=== PATIENT | male | born 1970 | race Hispanic/Latino ===

== ENCOUNTER 2016-12-28 03:50 | Emergency (ER) | payer MEDICAID, OTHER ==
[2016-12-28 04:13] VITALS: BP 140/80; PULSE 101; TEMP 98; O2SAT 100
[2016-12-28 05:04] VITALS: RESP 16
--- NOTE | 2016-12-28 05:19 | ED PDOC ---
HPI: SOB/CHF/COPD Time Seen by Provider: 12/28/16 04:00 Chief Complaint (Nursing): Shortness Of Breath Chief Complaint (Provider): shortness of breath History Per: Patient History/Exam Limitations: no limitations Current Symptoms Are (Timing): Still Present Additional Complaint(s): The patient is a 46yo male, no pertinent past medical history, presents to the ED for evaluation of shortness of breath present for the past couple days. Patient reports he was in [place] when his symptoms presented, reports feeling bloated as well. Patient states he visited an ED facility in [place] and was discharged with a diagnosis of acid reflux. Patient reports he presents today due to persistent shortness of breath - he reports some relief with taking his prescription acid reflux medications. He denies any fever, chills, chest pain. Offers no additional medical complaints. Past Medical History Reviewed: Historical Data, Nursing Documentation, Vital Signs Vital Signs: Last Vital Signs Temp 98.0 F 12/28/16 04:10 Pulse 101 H 12/28/16 04:10 Resp 16 12/28/16 05:03 BP 140/80 12/28/16 04:10 Pulse Ox 100 12/28/16 06:37 - Medical History PMH: Asthma Denies: Chronic Kidney Disease - Surgical History Surgical History: No Surg Hx - Family History Family History: States: No Known Family Hx, Unknown Family Hx - Social History Ex-Smoker (has not smoked in the last 12 months): Yes Alcohol: None Drugs: Denies - Home Medications Home Medications: Ambulatory Orders Medication Instructions Recorded Acetaminophen with Codeine 1 tab PO Q8H #10 tab 03/29/15 [Tylenol with Codeine No. 3 300 mg-30 mg] Clindamycin [Cleocin] 300 mg PO TID #30 cap 03/29/15 - Allergies Allergies/Adverse Reactions: Allergies Allergy/AdvReac Type Severity Reaction Status Date / Time Penicillins Allergy RASH Verified 12/28/16 04:14 Review of Systems ROS Statement: Except As Marked, All Systems Reviewed And Found Negative Constitutional: Negative for: Fever, Chills Cardiovascular: Negative for: Chest Pain Respiratory: Positive for: Shortness of Breath Physical Exam - Reviewed Nursing Documentation Reviewed: Yes Vital Signs Reviewed: Yes - Physical Exam Appears: Positive for: Well, Non-toxic, No Acute Distress Head Exam: Positive for: ATRAUMATIC, NORMAL INSPECTION, NORMOCEPHALIC Skin: Positive for: Normal Color, Warm, DRY Eye Exam: Positive for: EOMI, Normal appearance, PERRL Neck: Positive for: Normal, Painless ROM Cardiovascular/Chest: Positive for: Regular Rate, Rhythm Respiratory: Positive for: CNT, Normal Breath Sounds Gastrointestinal/Abdominal: Positive for: Normal Exam, Bowel Sounds, Soft Extremity: Positive for: Normal ROM Neurologic/Psych: Positive for: Alert, Oriented - Laboratory Results Result Diagrams: 12/28/16 05:21 12/28/16 05:21 - ECG O2 Sat by Pulse Oximetry: 100 (RA) Pulse Ox Interpretation: Normal Medical Decision Making Medical Decision Making: Time: 0430 Impression: short of breath rule out GERD vs asthma vs pneumonia Plan: -- Labs -- Chest x-ray -- Pepcid 20 mg IVP Reassess Time: 626 K-Dur 20meq ordered D-Dimer ordered to rule out PE pt given pepcid for likely gerd as lungs were clear Scribe Attestation: Documented by Dilcia Harris acting as a scribe for Pura Arellano MD. Provider Attestation: All medical record entries made by the Scribe were at my direction and personally dictated by me. I have reviewed the chart and agree that the record accurately reflects my personal performance of the history, physical exam, medical decision making, and the department course for this patient. I have also personally directed, reviewed, and agree with the discharge instructions and disposition. Disposition - Clinical Impression Clinical Impression: Shortness of breath - Patient ED Disposition Is Patient to be Admitted: Transfer of Care - Disposition Referrals: Jose Freitas MD [Primary Care Provider] - Disposition: Transfer of Care Disposition Time: 06:37 Condition: STABLE Forms: [employer] (Azeri) Patient Signed Over To: Chris Self Handoff Comments: Pending Chest x-ray read and D-Dimer
[2016-12-28 05:35] LABS: BASO % 0.4 % (0.0-2.0); EOS # 0.1 K/uL (0.0-0.7); HEMATOCRIT 39.3 % (35.0-51.0); LYMPH # 2.2 K/uL (1.0-4.3); MEAN CELL VOLUME 88.1 fl (80.0-94.0); MEAN CORPUSCULAR HEMOGLOBIN 29.9 pg (27.0-31.0); MEAN CORPUSCULAR HGB CONC 33.9 g/dL (33.0-37.0); MEAN PLATELET VOLUME 7.6 fl (7.2-11.7); MONO # 0.5 K/uL (0.0-0.8); MONO % 6.8 % (0.0-10.0); NEUT # 4.8 K/uL (1.8-7.0); NEUT % 62.8 % (50.0-75.0); NRBC % 0.1 % (0.0-0.0); RED CELL DISTRIBUTION WIDTH 12.2 % (11.5-14.5); WHITE BLOOD COUNT 7.6 K/uL (4.8-10.8)
[2016-12-28 05:49] LABS: ALB/GLOB RATIO 1.6 (1.0-2.1); ALKALINE PHOSPHATASE 48 U/L (38-126); ALT/SGPT 89 U/L (21-72); AST/SGOT 47 U/L (17-59); BLOOD UREA NITROGEN 14 mg/dl (9-20); CALCIUM 9.7 mg/dL (8.4-10.2); CARBON DIOXIDE 29 mmol/L (22-30); CHLORIDE 102 mmol/L (98-107); GFR AFRICAN-AMERICAN > 60; GLUCOSE,RANDOM 96 mg/dL (75-110); LIPASE 61 U/L (23-300); POTASSIUM 3.5 MMOL/L (3.6-5.0); SODIUM 139 mmol/l (132-148); TOTAL PROTEIN 7.1 G/DL (6.3-8.2)
[2016-12-28] MEDS ORDERED: Potassium Chloride 20 mEq ER Tab PO ONE ×2 (06:27→07:21)
--- NOTE | 2016-12-28 07:09 | ED PDOC ---
- Laboratory Results Result Diagrams: 12/28/16 05:21 12/28/16 05:21 - ECG O2 Sat by Pulse Oximetry: 100 (RA) Pulse Ox Interpretation: Normal Medical Decision Making Medical Decision Making: Time: 07:00 --Patient has been signed out by Eileen Neves MD to [place], pending Chest X-Ray read and D-Dimer results Requesting to go home prior to completion of eval. Aware of riskd including worsening of pneumonia and PE and . Advised f/u with PMD Disposition - Clinical Impression Clinical Impression: Shortness of breath - POA Present On Arrival: None - Disposition Referrals: Jose Freitas MD [Primary Care Provider] - Disposition: AGAINST MEDICAL ADVICE Disposition Time: 07:45 Condition: STABLE Instructions: Dyspnea (ED) Forms: [employer] (Lux[place]ish)
--- NOTE | 2016-12-28 07:56 | RAD ---
EXAM: XR Chest, 2 Views CLINICAL HISTORY: 46 years old, male; Signs and symptoms; Shortness of breath; Additional info: SOB TECHNIQUE: Frontal and lateral views of the chest. COMPARISON: No relevant prior studies available. FINDINGS: Lungs: Unremarkable. No consolidation. Pleural space: Unremarkable. No pneumothorax. Heart: Unremarkable. No cardiomegaly. Mediastinum: Unremarkable. Bones/joints: Unremarkable. IMPRESSION: Normal chest x-rays.
--- NOTE | 2016-12-28 17:43 | CARD ---
APPROVED REPORT EKG Measurement Heart [id number] MD [id number] <Conclusion> Sinus rhythm with fusion complexes Otherwise normal ECG
== END 2016-12-28 08:00 | disposition home or self-care (01) ==
LOC: H.ER 03:50
DX: R06.02 Shortness of breath (principal); Z88.0 Allergy status to penicillin